=== PATIENT | male | born 1965 | race Caucasian/White ===

== ENCOUNTER 2020-02-21 19:23 | Emergency (ER) | payer MEDICARE, MEDICAID ==
[~2020-02-21] VITALS: Ht 185.4 cm; Wt 108.9 kg
[~2020-02-21 19:23] MED LIST: ACETAMINOPHEN325 M1 PO; ATIVAN1 MG PO; BACTRIM DS TAB1 EACH; BACTRIM DS TAB1 EACH PO; BACTROBAN CREAM30 G2 TOP; BACTROBAN NASAL1 GM NASAL; ERYTHROMYCIN E3.5 G1 OPHTHALMIC; KEPPRA 500 MG500 M1 PO; KEPPRA 500 MG500 MG PO; LEVAQUIN 500 M500 M2 PO; MINOCYCLINE HC100 M2; PERCOCET 5-3251 EACH PO; SEROQUEL 25 MG25 M1; STOOL SOFTENER50 MG; TESSALON PERLE100 M1 PO; VENTOLIN HFA 1818 GM INH; ZPAK PO
[2020-02-21 21:26] VITALS: BP 112/78
== END 2020-02-21 21:27 | disposition home or self-care (01) ==
LOC: M.ERS 19:23
DX: B34.9 Viral infection, unspecified (principal); Z20.828 Contact with and (suspected) exposure to other viral communicable diseases

== ENCOUNTER 2020-07-12 11:55 | Emergency (ER) | payer MEDICARE, MEDICAID ==
[~2020-07-12] VITALS: Ht 185.4 cm; Wt 104.3 kg
[2020-07-12 12:40] LABS: HEMOGLOBIN 14.7 gm/dL (14.0-18.0); MCH 30.6 pg (26.0-34.0); MCHC 34.5 g/dL (28.0-37.0)
[2020-07-12 12:41] LABS: ABSOLUTE BASOPHILS 0.1 thou/uL (0.0-0.2); ABSOLUTE EOSINOPHILS 0.6 thou/uL (0.0-0.7); ABSOLUTE MONOCYTES 0.7 thou/uL (0.0-1.2); ABSOLUTE NEUTROPHILS 5.2 thou/uL (1.6-8.1); BASOPHILS 0.8 %; EOSINOPHILS 6.8 %; HEMATOCRIT 42.7 % (42.0-52.0); MCV 88.9 fL (80.0-100.0); MONOCYTES 7.7 %; MPV 7.6 fl. (7.2-11.1); NUCLEATED RBCS 0 /100WBC; PLATELET COUNT* 250 thou/uL (150-400); POLYS 53.7 %; RDW-CV 13.1 % (10.5-14.5); WBC 9.6 thou/uL (4.0-11.0)
[2020-07-12 12:49] LABS: CALCIUM 9.2 mg/dL (8.5-10.1); CREATININE 0.9 mg/dL (0.6-1.3); POTASSIUM 4.2 mmol/L (3.5-5.1)
[2020-07-12 13:02] LABS: ALBUMIN 3.3 g/dL (3.4-5.0); TOTAL BILIRUBIN 0.3 mg/dL (<0.1-1.0)
[2020-07-12 13:12] LABS: URINE BILIRUBIN NEGATIVE (Negative); URINE BLOOD NEGATIVE (Negative); URINE CLARITY CLEAR; URINE COLOR YELLOW; URINE GLUCOSE-RANDOM NEGATIVE (Negative); URINE KETONES NEGATIVE (Negative); URINE LEUKOCYTES-REFLEX NEGATIVE (Negative); URINE NITRITE-REFLEX NEGATIVE (Negative); URINE PROTEIN NEGATIVE (Negative); URINE SPECIFIC GRAVITY >= 1.030 (1.005-1.030); URINE UROBILINOGEN 0.2 E.U./dl (0.2-1.0)
[2020-07-12] MEDS ORDERED: VENTOLIN HFA 1818 GM INH (14:15)
[2020-07-12] MEDS ORDERED: CARAFATE1 GM/10 ML PO (14:15)
[2020-07-12] MEDS ORDERED: MEDROLDOSEPACK PO (14:15)
[2020-07-12] MEDS ORDERED: NORCO5 PO (14:39)
[2020-07-12 15:25] VITALS: BP 135/83
--- NOTE | 2020-07-13 11:11 | EKG ---
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
--- NOTE | 2020-07-13 13:10 | EKG ---
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 : 1965 Requested By: Sera Valderrama Order Number: [id number] Reading MD: Ben Domínguez Measurements Intervals [place] Rate: 66 P: 14 FL: 201 QRS: -9 QRSD: 108 T: 0 QT: 384 QTc: 403 Interpretive Statements Sinus rhythm Borderline repolarization abnormality Baseline wander in lead(s) II,III,aVR,aVL,aVF Compared to ECG 12/28/2015 22:47:25 no change Electronically Signed On 07-13-2020 13:10:01 CDT by Ben Domínguez [email or web address] <ELECTRONICALLY SIGNED> By: Ben Domínguez MD, [facility] 07/13/20 1310 1246 1246 Ben Domínguez MD, [facility] /EPI
== END 2020-07-12 15:25 | disposition home or self-care (01) ==
LOC: M.ERS 11:55
PROVIDERS: Nurse Practitioner Family
DX: S27.818A Other injury of esophagus (thoracic part), initial encounter (principal); I71.4 Abdominal aortic aneurysm, without rupture; M19.032 Primary osteoarthritis, left wrist; N28.1 Cyst of kidney, acquired; Z20.822 Contact with and (suspected) exposure to COVID-19; Z87.891 Personal history of nicotine dependence; X58.XXXA Exposure to other specified factors, initial encounter; Y93.89 Activity, other specified; Y92.89 Other specified places as the place of occurrence of the external cause; Y99.8 Other external cause status

== ENCOUNTER 2020-11-19 20:02 | Emergency (ER) | payer MEDICARE, MEDICAID ==
[~2020-11-19] VITALS: Ht 185.4 cm; Wt 104.3 kg
[~2020-11-19 20:02] MED LIST changes: +CARAFATE1 GM/10 ML PO; +MEDROLDOSEPACK PO; +NORCO5 PO
[2020-11-19] MEDS ORDERED: AUGMENTIN 500-1 EACH PO (21:56)
[2020-11-19] MEDS ORDERED: HYDROCODON-ACE1 EAC7 PO (21:56)
[2020-11-19] MEDS ORDERED: IBUPROFEN 800800 MG PO (21:56)
[2020-11-19 22:30] VITALS: BP 164/109
== END 2020-11-19 22:30 | disposition home or self-care (01) ==
LOC: M.ERS 20:02
DX: S61.215A Laceration without foreign body of left ring finger without damage to nail, initial encounter (principal); S61.217A Laceration without foreign body of left little finger without damage to nail, initial encounter; Z86.19 Personal history of other infectious and parasitic diseases; Z87.891 Personal history of nicotine dependence; W26.8XXA Contact with other sharp object(s), not elsewhere classified, initial encounter; Y93.89 Activity, other specified; Y92.89 Other specified places as the place of occurrence of the external cause; Y99.8 Other external cause status